=== PATIENT | male | born 1980 | race African-American/Black ===

== ENCOUNTER → 2021-06-25 | Outpatient (CLI) | payer OTHER ==
[2021-06-25 08:19] LABS: ALBUMIN 4.2 g/dL (3.5-5.0)
[2021-06-25 08:20] LABS: CALCIUM 9.8 mg/dL (8.3-10.5)
[2021-06-25 08:22] LABS: TOTAL PROTEIN 7.4 g/dL (6.4-8.3)
[2021-06-25 08:24] LABS: TOTAL BILIRUBIN 0.8 mg/dL (0.2-1.2)
== END ==
LOC: LAB 07:39
PROVIDERS: Internal Medicine
DX: I10 Essential (primary) hypertension (principal); E11.9 Type 2 diabetes mellitus without complications; K90.9 Intestinal malabsorption, unspecified; E78.2 Mixed hyperlipidemia

== ENCOUNTER → 2021-09-24 | Outpatient (CLI) | payer OTHER | LOC: LAB 08:02 | DX: E11.9 Type 2 diabetes mellitus without complications (principal) ==